=== PATIENT | female | born 1950 | race African-American/Black ===

== ENCOUNTER → 2019-11-08 | Outpatient (CLI) | payer MEDICARE, OTHER ==
--- NOTE | 2019-11-08 14:48 | Diagnostic Imaging Report ---
Ultrasound guided thyroid FNA. History: Thyroid nodules. Comparison: Outside ultrasound 05/27/2018. EBL: < 1 cc. Specimen: Thyroid FNA samples given to pathology. Discussion: Transverse and longitudinal images of the thyroid were obtained demonstrating a greater than 5 cm heterogeneous solid nodule in the right thyroid lobe. After informed consent was obtained, the patient's neck was prepped and draped in a sterile fashion. The skin was anesthetized with 1% lidocaine without epinephrine. Using ultrasound guidance, the right thyroid nodule was aspirated using 25-gauge needles x 4. Samples were given to cytopathology for confirmed adequacy check. The patient tolerated procedure well without evidence of immediate complication. IMPRESSION: Successful ultrasound guided fine needle aspiration of a right thyroid nodule. Signed by: Sushant Marin on 11/08/2019 2:45 PM
--- NOTE | 2019-11-09 10:32 | NUR ---
followup call done. pt states everything is going well. instructed she can remove dressing today and shower and to continue her abx for sinus infection. already has appointment for followup. states she was pleased with everyone involved
== END ==
LOC: US 11:09
PROVIDERS: ATTEND Internal Medicine
DX: E04.1 Nontoxic single thyroid nodule (principal)
CPT/HCPCS: 10005; 87635; 88172; 88173